=== PATIENT | male | born 1965 | race Caucasian/White ===

== ENCOUNTER 2022-10-07 11:28 | Outpatient (CLI) | payer OTHER, SELFPAY ==
--- NOTE | 2022-10-07 | ECG_ITS ---
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 Interpretive Statements NAME OF STUDY: TREADMILL STRESS TEST INDICATION: Chest Pain, PROCEDURE: At the baseline, the patient's blood pressure was noted obtained but the heart rate was 82/min. The baseline electrocardiogram showed normal sinus rhythm with normal ST-Ts.. The patient exercised for 6 minutes and 34 seconds on a standard Ebn protocol. Patient attained a maximum heart rate of 142 beats per minute(87% of the maximum predicted heart rate) with a blood pressure at the peak exercise of 205/86 mm Hg. The EKG at the peak exercise revealed no significant changes. Patient did not have any chest pain or any significant cardiac arrhythmias with the exercise During the recovery phase, there were no new changes. Blood pressure at the end of the recovery phase was 136/88 mm Hg with a heart rate of 103 per minute. CONCLUSION: 1. No significant EKG changes with the treadmill exercise 2. No exercise-induced chest pain or cardiac arrhythmia 3. Fair exercise tolerance, attained a maximum of 10.2 METs 4. Hypertensive response exercise Electronically Signed On 10-12-2022 18:05:22 ORCHID WORKER by Masha Rain M.D. [id number]
[2022-10-07 11:55] VITALS: BMI 29.8
[2022-10-07 12:45] VITALS: BP 136/88; PULSE 99
== END 2022-10-07 11:29 | disposition home or self-care (01) ==
LOC: CDL 11:31
PROVIDERS: PCP Family Medicine; Visit Provider Family Medicine
DX: R07.9 Chest pain, unspecified (principal); I10 Essential (primary) hypertension
CPT/HCPCS: 93017

== ENCOUNTER → 2023-04-23 10:00 | Outpatient (BNVA) | payer OTHER, SELFPAY | PROVIDERS: PCP Family Medicine; Visit Provider Nurse Practitioner Family | DX: L81.4 Other melanin hyperpigmentation (principal); D22.5 Melanocytic nevi of trunk; Z71.89 Other specified counseling; L85.3 Xerosis cutis; L57.8 Other skin changes due to chronic exposure to nonionizing radiation; L57.0 Actinic keratosis; S50.812A Abrasion of left forearm, initial encounter; X58.XXXA Exposure to other specified factors, initial encounter; Z85.820 Personal history of malignant melanoma of skin; Z87.891 Personal history of nicotine dependence | CPT/HCPCS: 17000; 17003; 99213 ==

== ENCOUNTER → 2023-08-24 12:00 | Outpatient (BNVA) | payer OTHER, SELFPAY | PROVIDERS: PCP Family Medicine; Visit Provider Internal Medicine Cardiovascular Disease | DX: R07.9 Chest pain, unspecified (principal); R03.0 Elevated blood-pressure reading, without diagnosis of hypertension; R51.9 Headache, unspecified; S06.9XAA Unspecified intracranial injury with loss of consciousness status unknown, initial encounter; X58.XXXA Exposure to other specified factors, initial encounter; Y99.9 Unspecified external cause status | CPT/HCPCS: 93005; 99204 ==

== ENCOUNTER 2023-09-14 07:47 | Outpatient (CLI) | payer OTHER, SELFPAY ==
--- NOTE | 2023-09-14 07:45 | USCV_ITS ---
Marvel Morris Age: 58 Gender: M : 1965 Exam Date: 09/14/2023 07:56 Ordering Phys: Masha Rain MD ([email or web address]) Technologist: [place] [facility] [place]: [place] pain BP: 150 / 90 HR: 67 Rhythm: Sinus Technical Quality: Adequate MEASUREMENTS (Male / Female) Normal Values 2D ECHO LV Diastolic Diameter PLAX 4.4 cm 4.2 - 5.9 / 3.9 - 5.3 cm LV Systolic Diameter PLAX 2.9 cm IVS Diastolic Thickness 1.0 cm 0.6 - 1.0 / 0.6 - 0.9 cm IVS Systolic Thickness 1.6 cm LVPW Diastolic Thickness 1.0 cm 0.6 - 1.0 / 0.6 - 0.9 cm LVPW Systolic Thickness 1.6 cm LVOT Diameter 2.0 cm LV Ejection Fraction 2D Teich 54.7 % LV Ejection Fraction MOD 2C 60.1 % LV Ejection Fraction 2C AL 59.7 % LA Diameter 3.9 cm IVC Diameter 1.7 cm M-MODE Aortic Annulus Diameter 3.9 cm LA Ao Ratio MM 1.1 MV E Point Septal Separation 0.8 cm DOPPLER AV Peak Velocity 108.0 cm/s LVOT Peak Velocity 89.0 cm/s AV Area Cont Eq vti 2.6 cm squared AV Area Cont Eq pk 2.7 cm squared MV Area PHT 4.6 cm squared Mitral E to A Ratio 1.1 MV E' Velocity 39.5 cm/s Mitral E to MV E' Ratio 9.0 Mitral E to LV E' Lateral Ratio 7.9 Mitral E to LV E' Septal Ratio 10.7 TR Peak Velocity 119.5 cm/s TR Peak Gradient 5.7 mmHg TV Peak E Velocity 76.0 cm/s Right Atrial Pressure 3.0 mmHg Pulmonary Artery Systolic Pressu 8.7 mmHg FINDINGS Left Ventricle Left ventricle is normal in size. LV systolic function is normal with EF of 55 to 60%. No regional wall motion abnormalities are seen. Right Ventricle Normal in size and function Right Atrium Normal in size Left Atrium Normal in size Mitral Valve Structurally normal mitral valve. Mild mitral regurgitation. Aortic Valve Structurally normal aortic valve. No significant stenosis or regurgitation. Tricuspid Valve Mild tricuspid regurgitation. Insufficient TR jet to calculate RVSP Pulmonic Valve Not well visualized Pericardium Normal Aorta Normal in size IVC Appears to be normal CONCLUSIONS LV systolic function is normal with EF of 55-60% Mild mitral regurgitation Mild tricuspid regurgitation No comparison studies are available. Bhupinder Herzog MD (Electronically Signed) Final Date: 15 September 2023 11:33 S
== END 2023-09-14 07:48 | disposition home or self-care (01) ==
LOC: RAD 07:48
PROVIDERS: PCP Family Medicine; Visit Provider Internal Medicine Cardiovascular Disease
DX: R07.9 Chest pain, unspecified (principal); I08.1 Rheumatic disorders of both mitral and tricuspid valves
CPT/HCPCS: 93306

== ENCOUNTER → 2024-02-23 10:08 | Outpatient (BNVA) | payer OTHER, SELFPAY | PROVIDERS: PCP Family Medicine; Referring Provider Family Medicine; Visit Provider Surgery | DX: Z12.11 Encounter for screening for malignant neoplasm of colon | CPT/HCPCS: 99203 ==

== ENCOUNTER 2024-03-22 08:12 | Day surgery (SDC) | payer OTHER, SELFPAY ==
--- NOTE | 2024-03-22 08:29 | ANES.PREANE2 ---
Pre-Anesthetic Assessment Height/Weight: Height 1.8 m Operation Date: 03/22/24 09:50 Proposed Procedures p Colonoscopy(Not Applicable) - Yonathan Amanda MD Was Beta Rashel taken within 24 hours: N/A Social No alcohol and No tobacco Exam alert, oriented x 3, clear to auscultation bilaterally and regular rate & rhythm Airway Submandibular: within normal limits Mallampati: Class II History/ROS No significant history except as noted CV/HEM Hypertension GI Gastroesophageal Reflux Disease Neuropsych Closed head injury Anesthetic Plan ASA status: 3 Anesthesia: MAC Medications/Allergies Home Medications Medication Instructions Recorded Confirmed Last Taken Type amitriptyline 50 mg tablet 50 mg PO DAILY 08/24/23 03/17/24 03/17/24 History cayenne pepper 1 tab PO DAILY 08/24/23 03/17/24 03/17/24 History gabapentin 300 mg capsule 300 mg PO TID 08/24/23 03/17/24 03/17/24 History meloxicam 15 mg tablet 15 mg PO DAILY 08/24/23 03/17/24 03/17/24 History omeprazole 20 mg capsule,delayed 20 mg PO DAILY 08/24/23 03/17/24 03/17/24 History release prazosin 1 mg capsule 1 mg PO BID 08/24/23 03/17/24 03/17/24 History sildenafil 100 mg tablet 100 mg PO DAILY PRN Sexual Activity 08/24/23 03/17/24 Unknown History Allergies Allergy/AdvReac Type Severity Reaction Status Date / Time No Known Allergies Allergy Verified 03/17/24 10:47 [facility], [facility] Anesthesia Medical History Family history of malignant melanoma PTSD (post-traumatic stress disorder) Hx of traumatic brain injury Surgical History (Updated 02/23/24 @ 11:08 by ALLIE Dominguez) S/P hernia surgery No pertinent past surgical history Social History (Updated 02/23/24 @ 11:08 by ALLIE Dominguez) Smoking and tobacco/nicotine status: never used tobacco/nicotine Alcohol intake: never Data Anesthesia Cardiac Studies: Echocardiogram 09/14/23
[2024-03-22 08:30] VITALS: BMI 31.2
--- NOTE | 2024-03-22 08:32 | W.PM.OPSUD ---
Surgery/Procedure H&P Update DATE OF PROCEDURE: March 22, 2024 DATE H&P PERFORMED: 02/23/24 H&P UPDATE INFORMATION: I have reviewed H&P completed within last 30 days, I have examined patient prior to procedure, No changes to prior documentation and H&P is in [facility] [place] on date indicated PLANNED PROCEDURE: Operation Date: 03/22/24 09:50 Proposed Procedures p Colonoscopy(Not Applicable) - Yonathan Amanda MD
[2024-03-22] MEDS: sodium chloride 0.9% 1,000 ML 30 ML IV (08:41)
[2024-03-22 10:08] VITALS: BP 130/85; PULSE 78; RESP 18; TEMP 36.3; O2SAT 92
[2024-03-22 10:28] VITALS: BP 135/92; PULSE 71; RESP 18; TEMP 36.2; O2SAT 96
--- NOTE | 2024-03-22 12:48 | ANE.PACU2 ---
Inpatient post-anesthesia follow up: Vital signs: Temperature 97.2 F Pulse Rate 71 Respiratory Rate 18 Blood Pressure 135/92 Pulse Oximetry 96 Oxygen Delivery Me thod Room Air Oxygen Flow Rate Fraction of Inspir ed Oxygen Hydration adequate: Yes Nausea and vomiting: No Pain level: 1 Mental status: Baseline
== END 2024-03-22 10:34 | disposition home or self-care (01) ==
PROVIDERS: PCP Family Medicine; Visit Provider Surgery
PROC: 0DJD8ZZ Inspection of Lower Intestinal Tract, Via Natural or Artificial Opening Endoscopic (ICD-10-PCS; CPT 45378; principal; 2024-03-22 09:50)
DX: K92.1 Melena (principal); D12.8 Benign neoplasm of rectum; I10 Essential (primary) hypertension; K21.9 Gastro-esophageal reflux disease without esophagitis; Z87.820 Personal history of traumatic brain injury
CPT/HCPCS: 45380; 88305; J2704; J7030

== ENCOUNTER → 2024-04-06 09:21 | Outpatient (BNVA) | payer OTHER, SELFPAY | PROVIDERS: PCP Family Medicine; Visit Provider Surgery | DX: Z09 Encounter for follow-up examination after completed treatment for conditions other than malignant neoplasm (principal) | CPT/HCPCS: 99213 ==

== ENCOUNTER 2024-04-17 09:31 | Emergency (ER) | payer OTHER, SELFPAY ==
--- NOTE | 2024-04-17 09:37 | ECG_ITS ---
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 Measurements Intervals Marlin Rate: 75 P: 41 VT: 157 QRS: 42 QRSD: 92 T: 46 QT: 375 QTc: 419 Interpretive Statements SINUS RHYTHM Compared to ECG 08/24/2023 12:08:02 No significant changes Electronically Signed On 04-18-2024 8:32:44 CDT by Masha Rain M.D. [id number] f
[2024-04-17 09:39] VITALS: BP 148/102; PULSE 83; RESP 20; O2SAT 92
[2024-04-17 09:40] VITALS: TEMP 36.7
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
[2024-04-17 09:53] VITALS: RESP 17; O2SAT 93
[2024-04-17] MEDS: ondansetron 2 mg/ML SDV 2 mL 4 MG IVP (09:53)
[2024-04-17] MEDS: morphine 4 mg/mL SDV 1 mL IVP (09:53)
[2024-04-17 09:54] LABS: Basophils # 0.1 10^3/uL (0.0-0.1); Basophils % 1.2 %; Eosinophils # 0.4 10^3/uL (0.0-0.8); Eosinophils % 4.8 %; Lymphocytes # 2.2 10^3/uL (0.8-4.8); Lymphocytes % 30.6 %; Mean Corpuscular Hemoglobin 29.4 pg (27-33); Mean Corpuscular Volume 86.4 fl (82-101); Mean Platelet Volume 9.9 fL (7.4-10.4); Monocytes # 0.5 10^3/uL (0.2-0.9); Monocytes % 7.1 %; Neutrophils # 4.07 10^3/uL (1.8-7.7); Nucleated Red Blood Cells % 0 %; Platelet Count 239 10^3/cmm (157-399); Red Blood Count 5.21 10^6/uL (3.85-5.65); Red Cell Distribution Width 12.2 % (12.1-15.1); White Blood Count 7.28 10^3/uL (3.29-11.43)
[2024-04-17 10:00] VITALS: BP 148/102; PULSE 73; RESP 24; O2SAT 92
[2024-04-17] MEDS: iohexol 350 mg/mL 500 mL Btl (per mL) IV (10:09)
[2024-04-17 10:13] LABS: Alanine Aminotransferase 37 U/L (0-41); Albumin Level 4.3 g/dL (3.5-5.2); Alkaline Phosphatase 88 U/L (40-130); Anion Gap 14.2 (5-19); Aspartate Amino Transferase 39 U/L (0-40); Blood Urea Nitrogen 16 mg/dL (6-20); Calcium 8.7 mg/dL (8.5-10.5); Carbon Dioxide 25 mmol/L (22-29); Chloride 103 mmol/L (98-107); Creatinine Clr Calc Pharmacy 108.1845; Glomerular Filtration Rate 86.4 mL/min (90-130); Glucose 100 mg/dL (65-115); Osmolality Calculated 287 mOsm/kg (285-295); Potassium 4.2 mmol/L (3.5-5.1); Sodium 138 mmol/L (136-145); Total Bilirubin 0.9 mg/dL (0.15-1.2); Total Protein 7.3 g/dL (6.6-8.7)
[2024-04-17 10:35] VITALS: BP 144/88; PULSE 69; RESP 13; O2SAT 92
[2024-04-17 11:19] LABS: Troponin(5th) Baseline 9 ng/L (0-15)
[2024-04-17 11:27] VITALS: PULSE 69; RESP 16; O2SAT 97
[2024-04-17 12:40] LABS: Troponin 5 2HR 9.31 ng/L (0-15); Troponin 5 2HR Delta 0.31 ABS# (0-10)
== END 2024-04-17 13:10 | disposition home or self-care (01) ==
PROVIDERS: Emergency Provider Emergency Medicine; PCP Family Medicine
DX: R07.89 Other chest pain (principal)
CPT/HCPCS: 71045; 71275; 74177; 80053; 84484; 85025; 93005; 96374; 96375; 99285; J2270; J2405; Q9967

== ENCOUNTER → 2024-05-24 10:30 | Outpatient (BNVA) | payer OTHER, SELFPAY | PROVIDERS: PCP Nurse Practitioner Family; Visit Provider Internal Medicine Cardiovascular Disease | DX: R07.2 Precordial pain (principal); R03.0 Elevated blood-pressure reading, without diagnosis of hypertension; F43.10 Post-traumatic stress disorder, unspecified; Z87.891 Personal history of nicotine dependence | CPT/HCPCS: 99213 ==